=== PATIENT | male | born 1960 | race Two or more races ===

== ENCOUNTER 2025-01-27 19:25 | Emergency (ER) | payer OTHER ==
[~2025-01-27] VITALS: Ht 175.3 cm; Wt 89.4 kg
[2025-01-27 20:03] VITALS: BP 131/80; O2SAT 100
[2025-01-27] MEDS ORDERED: GLIPIZIDE2.5 MG PO (20:03)
[2025-01-27] MEDS ORDERED: METFORMIN HCL1000 M3 PO (20:03)
[2025-01-27] MEDS ORDERED: SYNTHROID75 MCG PO (20:03)
[2025-01-27] MEDS ORDERED: SYNTHROID50 MCG PO (20:03)
[2025-01-27] MEDS ORDERED: 0.9 % SODIUM CHLORIDE 1,000 ML IV SCH (20:30)
[2025-01-27 20:54] LABS: BASO % 0.7 % (0.1-1.2); EOS # 0.48 (0.04-0.54); EOS % 3.8 % (0.7-7.0); LYMPH # 2.55 (1.18-3.74); LYMPH % 20.4 % (19.3-53.1); MEAN PLATELET VOLUME 10.20 fl (9.4-12.4); MONO # 1.11 (0.24-0.82); MONO % 8.9 % (4.7-12.5); NEUT # 8.23 (1.56-6.13); NEUT % 65.6 % (34.0-71.1); RED CELL DISTRIBUTION WIDTH 13.0 % (11.6-14.4)
[2025-01-27 21:14] LABS: INR 1.04
[2025-01-27 21:20] LABS: URINE APPEARANCE Turbid; URINE BILIRRUBIN Small (NEGATIVE); URINE BLOOD Small; URINE COLOR Red; URINE GLUCOSE Negative (NEGATIVE); URINE KETONE Negative (NEGATIVE); URINE LEUKOCYTE Large; URINE NITRATE Positive; URINE UROBILINOGEN 0.2 E.U./dl
[2025-01-27 21:21] LABS: URINE BACTERIA 289.1 uL (0.0-1933); URINE EPITHELIAL CELLS 9.5 uL (0.0-38.8); URINE WBC 678.3 uL (0.0-23.2)
[2025-01-27 21:23] LABS: ALT/SGPT 23.0 U/L (12-78); AST/SGOT 17.0 U/L (15-37); BILIRUBIN TOTAL 0.83 mg/dL (0.3-1.2); BUN CREA RATIO 14.0 (7.0-25.0); CREATININE SERUM 0.93 mg/dL (0.70-1.30); GFR 81.54; GLOBULINA 4.0 G/DL (2.4-3.5); GLUCOSE FASTING 170.0 mg/dL (65-100); OSMOLALITY SERUM 283.0 MOSM/KG (275-295)
[2025-01-27 21:23] LABS: URINE CAST 0.70 uL (0.0-1.40); URINE PROTEIN 100 (NEGATIVE); URINE RBC > 10558.9 uL (0.0-20.8)
== END 2025-01-27 21:54 | disposition home or self-care (01) ==
LOC: ER 19:25
PROVIDERS: General Practice
DX: R31.0 Gross hematuria (principal); E11.9 Type 2 diabetes mellitus without complications; Z79.84 Long term (current) use of oral hypoglycemic drugs